=== PATIENT | male | born 1975 | race African-American/Black ===

== ENCOUNTER 2020-10-03 23:02 | Emergency (ER) | payer MEDICAID, OTHER ==
[~2020-10-03] VITALS: Ht 185.4 cm; Wt 125.0 kg
--- NOTE | 2020-10-03 23:22 | NUR ---
[facility] REMAINS AT BEDSIDE PT IS UNDER ARRESST AND HANDCUFFED, ABRASION TO FACE. IVF INFUSING
[2020-10-03] MEDS ORDERED: SODIUM CHLORIDE 0.9% 1,000ML IVBOLUS ONE (23:30)
--- NOTE | 2020-10-03 23:38 | NUR ---
PT MORE CALM AND COOPERATIVE NOW. IVF INFUSING, HE IS ANSWERING QUESTIONS APPROP. [facility] REMAINS AT BEDSIDE.
[2020-10-03 23:48] LABS: BASOPHILS % (AUTO) 0 % (0-1); EOSINOPHILS % (AUTO) 0 % (1-7); LYMPHOCYTES % (AUTO) 8 % (22-44); MEAN CORPUSCULAR HEMOGLOBIN 28.4 pg (27.5-34.5); MEAN CORPUSCULAR HGB CONC 32.2 g/dL (33.2-36.2); MONOCYTES % (AUTO) 7 % (2-9); NEUTROPHILS % (AUTO) 84 % (42-75); PLATELET COUNT 325 x10^3/uL (130-400); RED BLOOD COUNT 5.27 x10^6/uL (4.38-5.82)
[2020-10-03 23:55] LABS: ALANINE AMINOTRANSFERASE 26 U/L (12-78); ALBUMIN 3.8 g/dL (3.4-5.0); ANION GAP 19 mmol/L (5-15); CALCIUM 9.2 mg/dL (8.5-10.1); CHLORIDE 102 mmol/L (98-107); CREATININE 2.09 mg/dL (0.7-1.3)
[2020-10-04 00:06] LABS: ALKALINE PHOSPHATASE 70 U/L (45-117); BILIRUBIN,TOTAL 0.5 mg/dL (0.2-1.0); TOTAL PROTEIN 7.7 g/dL (6.4-8.2)
[2020-10-04 00:12] LABS: SALICYLATE LEVEL < 1.7 mg/dL (2.8-20.0)
[2020-10-04 00:13] LABS: MD NO
[2020-10-04 00:28] LABS: FREE T4 (FREE THYROXINE) 0.83 ng/dL (0.76-1.46)
--- NOTE | 2020-10-04 01:42 | NUR ---
BARBS X2 FROM [facility] REMOVED. WILL APPLY ABX OINTMENT AND DRESS WITH [employer].
[2020-10-04 01:45] LABS: AMPHETAMINE SCREEN, URINE Positive (Negative); BARBITURATE SCREEN, URINE Negative (Negative); BENZODIAZEPINE SCREEN, URINE Positive (Negative); CANNABINOID SCREEN, URINE Positive (Negative); COCAINE SCREEN, URINE Negative (Negative); METHADONE SCREEN, URINE Negative (Negative); OPIATE SCREEN, URINE Negative (Negative)
--- NOTE | 2020-10-04 01:51 | NUR ---
PT MORE AWAKE, ANSWERS QUESTIONS, VSS. IVF INFUSED. ERP TO RE-EVAL.
--- NOTE | 2020-10-04 02:25 | NUR ---
IV DC CATH INTACT, WOUNDS CLEANSED. VSS. DC TO [facility]USTODY OF [facility] FOR [facility].
[2020-10-04 02:26] VITALS: BP 110/78
== END 2020-10-04 02:29 | disposition home or self-care (01) ==
LOC: ED 10-04 00:59
DX: F32.3 Major depressive disorder, single episode, severe with psychotic features (principal); F15.129 Other stimulant abuse with intoxication, unspecified; F12.129 Cannabis abuse with intoxication, unspecified; I44.4 Left anterior fascicular block; R00.0 Tachycardia, unspecified; F17.200 Nicotine dependence, unspecified, uncomplicated; Z72.9 Problem related to lifestyle, unspecified
CPT/HCPCS: 36415; 80053; 80307; 84439; 84443; 85025; 93005; 99284; 99285